=== PATIENT | male | born 1950 | race Caucasian/White ===

== ENCOUNTER → 2018-02-17 | Outpatient (CLI) | payer MEDICARE ==
[~2018-02-17] MED LIST: BARIUM SUSPENSION 2.1% (VANILLA SILQ) 450 ML PO ONE; CATHETER FLUSH 10 ML SYR IV PRN; IOHEXOL 350 MG/ML 100 ML (OMNIPAQUE 350) VIAL IV ONE; NS 250 ML (IVPB) BAG IV ONE
[2018-02-17 11:09] LABS: BUN/CREATININE RATIO 12; CREATININE SERUM 0.84 MG/DL (0.60-1.30); GFR ESTIMATED > 60
--- NOTE | 2018-02-17 12:35 | Diagnostic Imaging Report ---
PROCEDURE: CT abdomen and pelvis with contrast. TECHNIQUE: Multiple contiguous axial images were obtained through the abdomen and pelvis after administration of intravenous contrast. INDICATION: Prostate carcinoma. COMPARISON: No prior studies are available for comparison. FINDINGS: The lung bases are clear. No discrete liver mass is identified. Mild generalized low density throughout the liver is seen, suggestive of hepatic steatosis. The gallbladder is unremarkable. The pancreas and spleen are unremarkable. No adrenal mass is detected. The kidneys are unremarkable. Aorta is nonaneurysmal. No central retroperitoneal or mesenteric lymphadenopathy is seen. The small and large bowel loops are normal in caliber. There is no ascites. No inguinal or iliac lymphadenopathy is seen. The bladder is unremarkable. Prostate is grossly unremarkable. No definite osteoblastic lesions are seen. IMPRESSION: Essentially unremarkable CT of the abdomen and pelvis apart from mild hepatic steatosis. There is no evidence of abdominal or pelvic lymphadenopathy or metastatic disease. Dictated by: Dictated on workstation # [id number]
--- NOTE | 2018-02-17 16:03 | Diagnostic Imaging Report ---
INDICATION: Prostate carcinoma. TECHNIQUE: The patient was administered 27.3 mCi of technetium 99m MDP intravenously and whole-body imaging was performed after a 3 hour delay. No prior bone scans are available for comparison. There is normal uptake of activity by the axial and appendicular skeleton. There is uptake by both kidneys with excretion to the urinary bladder. No abnormal foci of tracer accumulation is seen to suggest osseous metastatic disease or occult fracture. Probable degenerative changes of the right ankle are noted. IMPRESSION: No scintigraphic evidence of osseous metastatic disease. Dictated by: Dictated on workstation # [id number]
== END ==
LOC: RAD 10:39
PROVIDERS: ATTEND Urology
DX: C61 Malignant neoplasm of prostate (principal); K76.0 Fatty (change of) liver, not elsewhere classified
CPT/HCPCS: 36415; 74177; 78306; 82565; 84520

== ENCOUNTER 2018-03-28 14:56 | Outpatient (RCR) | payer MEDICARE | END 2018-04-18 | disposition home or self-care (01) | LOC: ONC 14:56 | PROVIDERS: ATTEND Radiology Radiation Oncology | DX: C61 Malignant neoplasm of prostate (principal) | CPT/HCPCS: 99204 ==

== ENCOUNTER 2018-07-07 09:55 | Outpatient (CLI) | payer BC, MEDICARE ==
[~2018-07-07] VITALS: Ht 165.1 cm; Wt 68.6 kg
[2018-07-07] MEDS ORDERED: LATA7.5D OU (10:15)
[2018-07-07] MEDS ORDERED: METF-397 PO (10:15)
[2018-07-07] MEDS ORDERED: DILT180C54 PO (10:15)
[2018-07-07] MEDS ORDERED: LISI40TA PO (10:15)
[2018-07-07] MEDS ORDERED: FLAX100031 PO (10:15)
[2018-07-07] MEDS ORDERED: PRAV20TA3 PO (10:15)
[2018-07-07] MEDS ORDERED: TAMS0.4C2 PO (10:15)
[2018-07-07] MEDS ORDERED: ASPI-586 PO (10:15)
[2018-07-07 10:18] VITALS: BP 165/95
== END 2018-07-07 11:09 | disposition home or self-care (01) ==
LOC: PREOP 09:55
PROVIDERS: ATTEND Urology
DX: Z01.810 Encounter for preprocedural cardiovascular examination (principal); Z11.2 Encounter for screening for other bacterial diseases; C61 Malignant neoplasm of prostate
CPT/HCPCS: 87081; 93005

== ENCOUNTER 2018-07-13 05:46 | Inpatient (IN) | payer BC, MEDICARE ==
[~2018-07-13] VITALS: Ht 165.1 cm; Wt 68.6 kg
[~2018-07-13 05:46] MED LIST changes: +ASPI-586 PO; -BARIUM SUSPENSION 2.1% (VANILLA SILQ) 450 ML PO ONE; -CATHETER FLUSH 10 ML SYR IV PRN; +DILT180C54 PO; +FLAX100031 PO; -IOHEXOL 350 MG/ML 100 ML (OMNIPAQUE 350) VIAL IV ONE; +LATA7.5D OU; +LISI40TA PO; +METF-397 PO; -NS 250 ML (IVPB) BAG IV ONE; +PRAV20TA3 PO; +TAMS0.4C2 PO
[2018-07-13] MEDS ORDERED: BUPIVACAINE 0.25% 30 ML (SENSORCAINE) VIAL ONE (06:26)
[2018-07-13] MEDS ORDERED: ceFAZolin 1,000 MG/10 ML (ANCEF) VIAL ONE (06:27)
[2018-07-13] MEDS ORDERED: NS (IVPB) 50 ML ONE (06:27)
[2018-07-13] MEDS ORDERED: MIDAZOLAM 2 MG/2 ML (VERSED) VIAL ONE (06:44)
[2018-07-13] MEDS ORDERED: fentaNYL INJECTION 100 MCG/2 ML AMP ONE (06:44)
[2018-07-13] MEDS ORDERED: ROCURONIUM 10 MG/ML 5 ML SYRINGE IV ONE ×2 (06:44→07:57)
[2018-07-13] MEDS ORDERED: SEVOFLURANE (ULTANE) 15 ML INHAL SOLN ONE ×13 (06:44→10:21)
[2018-07-13] MEDS ORDERED: ONDANSETRON 4 MG/2 ML (SDV) Z0FRAN ONE (06:44)
[2018-07-13] MEDS ORDERED: LIDOCAINE PF 2% 5 ML (XYLOCAINE) VIAL ONE (06:44)
[2018-07-13] MEDS ORDERED: proPOfol 200 MG/20 ML (DIPRIVAN) VIAL IV ONE (06:44)
[2018-07-13] MEDS: LACTATED RINGERS 1,000 ML IV PRN ×2 (06:55→07:55)
[2018-07-13] MEDS ORDERED: ceFAZolin INJECTION 1,000 MG in NS (IVPB) 50 ML IV ONE (07:00)
[2018-07-13] MEDS ORDERED: DOCUSATE SODIUM 100 MG (COLACE) CAP PO PRN (07:30)
[2018-07-13] MEDS ORDERED: SIMETHICONE 80 MG (MYLICON) CHEW PO PRN (07:30)
[2018-07-13] MEDS ORDERED: DILTIAZEM 180 MG (CARDIZEM CD) CAP PO ONE (07:30)
[2018-07-13] MEDS ORDERED: KETOROLAC 30 MG/ML VIAL IV PRN (07:30)
[2018-07-13] MEDS ORDERED: ZOLPIDEM 5 MG (AMBIEN) TAB PO PRN (07:30)
[2018-07-13] MEDS ORDERED: HYDROcodone/APAP 7.5 MG/325 MG (LORTAB, LORCET PLUS) TABLET PO PRN (07:30)
[2018-07-13] MEDS ORDERED: ANTACID SUSP 30 ML UDC (MYLANTA) PO PRN (07:30)
[2018-07-13] MEDS ORDERED: HYOSCYAMINE 0.125 MG (LEVSIN) TAB PO PRN (07:30)
[2018-07-13] MEDS ORDERED: ONDANSETRON 4 MG/2 ML (SDV) Z0FRAN IV PRN (07:30)
[2018-07-13] MEDS ORDERED: GLYCOPYRROLATE 0.2 MG/ML (ROBINUL) 2 ML VIAL ONE (09:43)
[2018-07-13] MEDS ORDERED: NEOSTIGMINE 1 MG/ML 5 ML SYRINGE ONE (09:43)
--- NOTE | 2018-07-13 10:40 | Progress Note-Post Operative ---
Post-Operative Progess Note Surgeon (s)/Pan Dumper (s) Surgeon SEAMUS NGUYEN MD Pan Dumper: None Pre-Operative Diagnosis Prostate cancer Post-Operative Diagnosis Prostate cancer, umbilical hernia Procedure & Operative Findings Date of Procedure 07/13/18 Procedure Performed/Findings Robotic assisted laparoscopic prostatectomy, bilateral pelvic lymph node dissection, bilateral nerve sparing, umbilical hernia repair. Findings: no evidence of gross extraprostatic extension; fibrotic reaction around the prostate with a moderate median lobe. Umbilical hernia present, ~1cm in diameter. Anesthesia Type General Estimated Blood Loss Estimated blood loss (mL): 100 Specimens/Packing Specimens Removed Prostate, right and left pelvic lymph nodes, anterior bladder neck margin, and umbilical hernia sac SEAMUS NGUYEN MD Jul 13, 2018 10:40
[2018-07-13] MEDS ORDERED: PROMETHAZINE INJ 25 MG/ML (PHENERGAN) AMP IVP ONE (10:45)
[2018-07-13] MEDS ORDERED: MEPERIDINE (DEMEROL) INJ 50 MG/ML IVP ONE (10:45)
[2018-07-13] MEDS ORDERED: HYDROmorphone 2 MG/ML VIAL (DILAUDID) IV ONE (10:45)
[2018-07-13] MEDS ORDERED: morphine INJ 10 MG/ML 1ML (SYR OR VIAL) IVP ONE (10:45)
[2018-07-13] MEDS ORDERED: morphine INJ 10 MG/ML 1ML (SYR OR VIAL) ONE (10:49)
[2018-07-13] MEDS ORDERED: KETOROLAC 30 MG/ML VIAL ONE (11:01)
[2018-07-13] MEDS: ONDANSETRON 4 MG/2 ML (SDV) Z0FRAN IVP PRN ×2 (11:28→11:35)
[2018-07-13 11:40] VITALS: BP 125/65
[2018-07-13] MEDS ORDERED: LACTATED RINGERS 1,000 ML IV ONE (11:48)
[2018-07-13] MEDS: LACTATED RINGERS 1,000 ML IV SCH ×3 (11:53→20:12)
[2018-07-13] MEDS: inSUlin ASPART (NovoLOG) 1 UNIT/0.01 ML (CHARGE PER UNIT) SC SCH ×8 (11:55→22:02)
[2018-07-13] MEDS: OXYBUTYNIN (DITROPAN) 5 MG TAB PO SCH ×2 (12:41→22:03)
[2018-07-13] MEDS: lisINopril 40 MG (PRINIVIL) TABLET PO SCH (12:42)
[2018-07-13] MEDS ORDERED: FLU QUADRIvalent (5+ YOA) 2018-2019 (AFLURIA) 0.5 ML IM ONE (12:45)
[2018-07-13] MEDS ORDERED: DILTIAZEM 180 MG (CARDIZEM CD) CAP PO NR (13:45)
[2018-07-13] MEDS: ceFAZolin INJECTION 1,000 MG in NS (IVPB) 50 ML IV SCH ×2 (13:52→22:43)
--- NOTE | 2018-07-13 14:03 | OPERATIVE REPORT ---
DATE OF SERVICE: 07/13/2018 ATTENDING SURGEON: Rusty Crane MD. CONSUMER INSIGHT ANALYST SURGEON: None. PREOPERATIVE DIAGNOSIS: Intermediate risk adenocarcinoma of the prostate. POSTOPERATIVE DIAGNOSIS: Intermediate risk adenocarcinoma of the prostate. PROCEDURES: 1. Robotic-assisted laparoscopic radical prostatectomy. 2. Bilateral pelvic lymph node dissection. 3. Bilateral nerve sparing. 4. Umbilical hernia repair. COMPLICATIONS: None. DRAINS: A 20-Swiss Singh catheter with a drainage of 15 mL in the balloon. ESTIMATED BLOOD LOSS: 300 mL. ANESTHESIA: General endotracheal anesthesia. SPECIMENS REMOVED: 1. Prostate and seminal vesicles. 2. Right and left pelvic lymph nodes. 3. Umbilical hernia sac. INDICATIONS FOR PROCEDURE: The patient is a very pleasant 68-year-old gentleman, who has a history of intermediate risk of adenocarcinoma of the prostate. I have discussed the various treatment options and the patient has elected to proceed with robotic-assisted laparoscopic radical prostatectomy. DESCRIPTION OF PROCEDURE: After reviewing the risks, benefits and alternatives of the procedure, the patient was taken to the operative suite and placed under general endotracheal anesthesia. He was moved to dorsal lithotomy position. His lower abdomen was clipped, prepped and draped in the usual fashion. Preoperative timeout was performed. Appropriate perioperative antibiotics were instilled. A 10 mm incision was made approximately 18 cm cephalad to the pubic symphysis. Through this, a Veress needle was inserted and a saline drop test was performed. Abdomen was insufflated to 15 mmHg. A step device was then utilized and a 10 mm port was placed through which a robotic camera was inserted. Intra-abdominal contents were inspected. No intra-abdominal injuries were identified. Three robotic ports were then placed, two in the midaxillary and midclavicular lines at the level of the umbilicus and one on the right side at the midclavicular line at the level of the umbilicus as well. These were placed under direct visualization. A 5 mm port was placed in the right upper quadrant along with a 12 mm port in the right lower quadrant, both using a step device. The patient was then moved in the Trendelenburg position. The robot was docked. We began by performing the bilateral pelvic lymph node dissection. The peritoneotomy was made overlying the external iliac arteries from the level of the ureter down to the Av's ligament. These were widened in the space medial to the vessels and lateral to the superior vesicle artery was created. In fact tissue overlying the external iliac vein, obturator nerve and internal area of the iliac vein was elevated and resected. Bipolar electrocautery was used to control lymphatics entering into the pelvis. These were passed off the surgical field as right and left pelvic lymph nodes. The peritoneotomies were continued up to the level of the umbilicus, which was divided using electrocautery. The bladder was then intraperitonealized and the anterior surface of the prostate was visualized. Prostate was defatted and the endopelvic fascia was opened. The puboprostatic ligaments were divided and a 0 Vicryl suture was then used to place a back bleeder suture together the leaflets of the endopelvic fascia at the midlevel of the prostate. An additional 0 Vicryl suture was then used in order to ligate the dorsal venous complex in a [id number] fashion. The bladder neck was then developed by sweeping free the fibers away from the prostate. Entering into the bladder neck, there was a median lobe identified and this was circumferentially dissected and resected. A frozen section was taken from the anterior bladder neck given the inflammatory reaction visible. This was confirmed that this was not adenocarcinoma the prostate. This did return as negative for malignancy. We then completed the posterior bladder neck dissection freeing the bladder from the prostate entirely. The vesicoprostatic membrane was divided and the seminal vesicles and vas deferens were circumferentially dissected and elevated out of the pelvis along with the prostate. The vas deferens were transected at this point. A high anterior release of the neurovascular bundles was then performed bilaterally. With this in size, we were able to sweep free the neurovascular tissue. The Denonvilliers fascia was then divided posteriorly and the apex of the prostate was dissected free from the rectum. With these two maneuvers completed, the vascular pedicles were able to be freely identified, which were controlled using bipolar electrocautery and divided sharply. The neurovascular bundles were then swept free down to the level of the apex of the prostate. A circumferential urethral dissection was then performed by dividing the dorsal venous complex and dissecting the urethra sharply. The dorsal venous complex was oversewn due to some bleeding using 0 Vicryl suture. Once the urethra was transected, the specimen was placed in a specimen bag. Hemostasis was achieved. A standard urethrovesical anastomosis was then performed using a 2-0 Monocryl suture tied together in a running fashion. This was run from posterior to anterior and tied. A new 20-Swiss Singh catheter was placed and this was leak tested using 150 mL of sterile saline. No leak was identified. Due to this, no drain was placed. The specimen was then repositioned through the midline port and the robot was undocked. Abdomen was desufflated and the patient was moved out of the Trendelenburg position. Midline incision was then extended down to the level of the umbilicus. An umbilical hernia was present approximately 1 cm in diameter. This was incorporated into the fascial opening. The sac of the hernia was resected and then the fascial edges were reapproximated using a 0 Vicryl suture in a akcwde-ar-[id number] fashion. Once this was completed, the umbilicus was then reapproximated down to the fascia using a 4-0 Vicryl suture. The skin was then infiltrated with local anesthesia and was closed using a 4-0 Monocryl in a subcuticular fashion. Dermabond was applied. The patient was then extubated and taken to the PACU in stable condition. Job ID: [id number] DocumentID: [id number] Dictated Date: 07/13/2018 10:22:11 Car Shunter Date: 07/13/2018 14:02:48 Dictated By: Rusty Crane MD
[2018-07-13 16:10] VITALS: BP 145/78
[2018-07-13 20:00] VITALS: BP 136/72
[2018-07-13] MEDS ORDERED: LATANOPROST 0.005% (XALATAN) OPHTH SOLN 2.5 ML OU SCH (21:00)
[2018-07-14] VITALS: BP 144/68
[2018-07-14] MEDS ORDERED: IBUPROFEN 600 MG (MOTRIN) TAB PO PRN
[2018-07-14] MEDS: LACTATED RINGERS 1,000 ML IV SCH (04:48)
[2018-07-14 04:51] VITALS: BP 161/79
[2018-07-14] MEDS: inSUlin ASPART (NovoLOG) 1 UNIT/0.01 ML (CHARGE PER UNIT) SC SCH (05:36)
[2018-07-14] MEDS: ceFAZolin INJECTION 1,000 MG in NS (IVPB) 50 ML IV SCH (06:03)
--- NOTE | 2018-07-14 06:37 | Progress Note-Urology ---
Progress Note-Urology Progress Notes/Assess & Plan Progress/Assessment & Plan DOING VERY WELL. TOLERATED PO WELL. URINE CLEAR. ABDOMEN SOFT. HOME WITH INSTRUCTIONS Final Diagnosis CA PROSTATE JOSE GUADALUPE SHAVER MD Jul 14, 2018 6:37 am
--- NOTE | 2018-07-14 06:41 | Discharge Inst-Urology ---
Discharge Inst-Urology Discharge Medications New, Converted, or Re-newed RX: RX on Chart Patient Instructions/Follow Up Plan Discharge with delgado and leg bag day time and large bag night time with instructions patient to come to office Tuesday 07/24 to DC Delgado and 2 weeks later to see me, rest till then Please make appointment to been seen in office in 2 weeks. Off ASA and Tamsulosin Keep bowels soft and moving Showers no bath Increase oral fluids for 48 hours and then as needed. Diet as tolerated. If questions or concerns contact your physician Or seek help at emergency department. JOSE GUADALUPE SHAVER MD Jul 14, 2018 6:41 am
[2018-07-14 08:00] VITALS: BP 179/88
[2018-07-14] MEDS ORDERED: HYDR-3870 PO ×2 (08:09)
[2018-07-14] MEDS ORDERED: CIPR-225 PO ×2 (08:09)
[2018-07-14] MEDS ORDERED: FLU QUADRIvalent (5+ YOA) 2018-2019 (AFLURIA) 0.5 ML IM ONE (08:22)
[2018-07-14] MEDS: lisINopril 40 MG (PRINIVIL) TABLET PO SCH (08:43)
[2018-07-14] MEDS: OXYBUTYNIN (DITROPAN) 5 MG TAB PO SCH (08:43)
[2018-07-14 09:13] LABS: MEAN PLATELET VOLUME 9.6 FL (7.4-10.4); RED BLOOD COUNT 4.72 10^6/uL (4.35-5.85); RED CELL DISTRIBUTION WIDTH 14.2 % (10.0-14.5); WHITE BLOOD COUNT 8.9 10^3/uL (4.3-11.0)
[2018-07-14 09:28] LABS: BUN/CREATININE RATIO 9; CALCIUM 8.8 MG/DL (8.5-10.1); CARBON DIOXIDE 23 MMOL/L (21-32); CHLORIDE 108 MMOL/L (98-107); CREATININE SERUM 0.86 MG/DL (0.60-1.30); GFR ESTIMATED > 60; GLUCOSE 247 MG/DL (70-105); POTASSIUM 4.1 MMOL/L (3.6-5.0); SODIUM 140 MMOL/L (135-145)
[2018-07-14 09:50] VITALS: BP 179/88
--- NOTE | 2018-07-14 13:39 | Anesthesia-General Post-Op ---
General Patient Condition Mental Status/LOC: Same as Preop Cardiovascular: Satisfactory Nausea/Vomiting: Absent Respiratory: Satisfactory Pain: Controlled Complications: Absent Post Op Complications Complications None Follow Up Care/Instructions Patient Instructions None needed. Anesthesia/Patient Condition Patient Condition Patient was seen post-op this morning and he was doing well, no complaints, stable vital signs, no apparent adverse anesthesia problems. CINDY ROBERTS DO Jul 14, 2018 13:39
== END 2018-07-14 09:50 | disposition home or self-care (01) | DRG 708 ==
LOC: 4TH 05:46 → SURG 05:47 → 4TH 11:44
PROVIDERS: ADMIT Urology; ATTEND Urology
PROC: 07TC4ZZ Resection of Pelvis Lymphatic, Percutaneous Endoscopic Approach (ICD-10-PCS; 2018-07-13)
PROC: 0TBC4ZX Excision of Bladder Neck, Percutaneous Endoscopic Approach, Diagnostic (ICD-10-PCS; 2018-07-13)
PROC: 0VT34ZZ Resection of Bilateral Seminal Vesicles, Percutaneous Endoscopic Approach (ICD-10-PCS; 2018-07-13)
PROC: 0VBQ4ZZ Excision of Bilateral Vas Deferens, Percutaneous Endoscopic Approach (ICD-10-PCS; 2018-07-13)
PROC: 0WQF0ZZ Repair Abdominal Wall, Open Approach (ICD-10-PCS; 2018-07-13)
PROC: 8E0W4CZ Robotic Assisted Procedure of Trunk Region, Percutaneous Endoscopic Approach (ICD-10-PCS; 2018-07-13)
PROC: 0VT04ZZ Resection of Prostate, Percutaneous Endoscopic Approach (ICD-10-PCS; principal; 2018-07-13 07:13)
DX: C61 Malignant neoplasm of prostate (principal)
CPT/HCPCS: 36415; 80048; 82962; 85027; 86850; 86900; 86901; 88302; 88305; 88307; 88331; 90471; 90686; 94664

== ENCOUNTER 2018-07-15 18:28 | Emergency (ER) | payer BC, MEDICARE ==
[~2018-07-15] VITALS: Ht 165.1 cm; Wt 69.9 kg
[~2018-07-15 18:28] MED LIST changes: +CIPR-225 PO; +HYDR-3870 PO
[2018-07-15] MEDS ORDERED: ONDANSETRON 4 MG/2 ML (SDV) Z0FRAN IVP ONE (19:00)
[2018-07-15] MEDS ORDERED: PANTOPRAZOLE 40 MG (PROTONIX) VIAL IV ONE (19:00)
[2018-07-15 19:17] LABS: BASOPHILS % (AUTO) 0 % (0-10); EOSINOPHILS % (AUTO) 0 % (0-10); HEMATOCRIT 51 % (40-54); HEMOGLOBIN 17.2 G/DL (13.3-17.7); LYMPHOCYTES % (AUTO) 13 % (12-44); MEAN CORPUSCULAR HEMOGLOBIN 29 PG (25-34); MEAN CORPUSCULAR HGB CONC 34 G/DL (32-36); MEAN CORPUSCULAR VOLUME 86 FL (80-99); MEAN PLATELET VOLUME 10.3 FL (7.4-10.4); MONOCYTES # (AUTO) 1.7 X 10^3 (0.0-1.0); MONOCYTES % (AUTO) 11 % (0-12); NEUTROPHILS # (AUTO) 11.1 X 10^3 (1.8-7.8); NEUTROPHILS % (AUTO) 75 % (42-75); PLATELET COUNT 236 10^3/uL (130-400); RED BLOOD COUNT 5.87 10^6/uL (4.35-5.85); RED CELL DISTRIBUTION WIDTH 13.5 % (10.0-14.5); WHITE BLOOD COUNT 14.8 10^3/uL (4.3-11.0)
[2018-07-15 19:38] LABS: INR 0.9 (0.8-1.4); PROTHROMBIN TIME PATIENT 12.4 SEC (12.2-14.7)
--- NOTE | 2018-07-15 19:40 | Diagnostic Imaging Report ---
INDICATION: Cough. Hemoptysis. EXAMINATION: Portable chest. FINDINGS: There is some infiltrate or atelectasis medially in the lung bases, bilaterally. The upper lungs are clear without evidence of pulmonary edema. Heart is not enlarged. No pneumothorax or pleural effusion. IMPRESSION: Portable chest showing some linear density along the medial basilar portions, bilaterally. This may represent atelectasis and/or infiltrate. Dictated by: Dictated on workstation # [id number]
[2018-07-15 19:51] LABS: BILIRUBIN,URINE NEGATIVE (NEGATIVE); CLARITY,URINE BLOODY; COLOR,URINE RED; GLUCOSE, URINE (UA) 2+ (NEGATIVE); KETONES,URINE 4+ (NEGATIVE); LEUKOCYTE ESTERASE ,URINE 1+ (NEGATIVE); NITRITE,URINE NEGATIVE (NEGATIVE); PH,URINE 6.5 (5-9); PROTEIN,URINE 4+ (NEGATIVE); UROBILINOGEN,URINE NORMAL (NORMAL)
[2018-07-15 19:56] LABS: ALANINE AMINOTRANSFERASE 14 U/L (0-55); ALBUMIN 3.9 GM/DL (3.2-4.5); ALKALINE PHOSPHATASE 78 U/L (40-136); AMYLASE 61 U/L (25-125); BILIRUBIN,TOTAL 0.9 MG/DL (0.1-1.0); BUN/CREATININE RATIO 17; CARBON DIOXIDE 23 MMOL/L (21-32); CHLORIDE 99 MMOL/L (98-107); CREATININE SERUM 1.01 MG/DL (0.60-1.30); GFR ESTIMATED > 60; GLUCOSE 207 MG/DL (70-105); LIPASE 10 U/L (8-78); MAGNESIUM 2.1 MG/DL (1.8-2.4); POTASSIUM 4.2 MMOL/L (3.6-5.0); SODIUM 137 MMOL/L (135-145); TOTAL PROTEIN 7.2 GM/DL (6.4-8.2)
[2018-07-15] MEDS ORDERED: IOHEXOL 350 MG/ML 100 ML (OMNIPAQUE 350) VIAL IV ONE (20:15)
[2018-07-15] MEDS ORDERED: CATHETER FLUSH 10 ML SYR IV PRN (20:15)
[2018-07-15] MEDS ORDERED: hydrALAZINE (APESOLINE) 20 MG/ML VIAL IV ONE (20:15)
[2018-07-15] MEDS ORDERED: NS 250 ML (IVPB) BAG IV ONE (20:15)
--- NOTE | 2018-07-15 20:23 | ED General ---
General Chief Complaint: Abdominal/GI Problems Stated Complaint: PUKING UP BLOOD Nursing Triage Note: PT TO ROOM 2 PER W/C PT CO OF VOMITING BLOOD X2 TODAY. HAVING DIFFICULTY SWALLOWING ABD, DISTENDED, ON 07/13 HAD RADICAL PROSTATECTOMY AND UMBILICAL HERNIA REPAIR. PT IS PROFUSLEY SWEATING, AND TACHY. PT STATES HAS NOT HAD BM SINCE SURG AND HAS PASSED GAS ONLY ONCE. PT HAS LEG BAG W BRIGHT RED BLOOD NOTED IN BAG. PT ALSO HAS ABD WOUNDS FROM RECENT SURG Nursing Sepsis Screen: No Definite Risk Source of Information: Patient Exam Limitations: No Limitations History of Present Illness Date Seen by Provider: Jul 15, 2018 Time Seen by Provider: 18:50 Initial Comments PT ARRIVES VIA POV FROM [facility]--REQUIRES WHEELCHAIR AND ASSISTANCE OUT OF VEHICLE PT STATES HE HAD A ROBOTIC LAPAROSCOPIC RADICAL PROSTATECTOMY AND UMBILICAL HERNIA REPAIR BY DR. NGUYEN, UROLOGIST FROM , DONE HERE ON 07/13/18. WAS DISMISSED YESTERDAY AROUND 11:00 AM PT STATES HE HAS NOT HAD A BM SINCE BEFORE SURGERY, AND IS NOT PASSING ANY GAS PT STATES HE HAS NOT BEEN ABLE TO EAT OR DRINK MUCH AT ALL SINCE SURGERY AND TODAY, HE STATES "NOTHING WILL GO DOWN" TONIGHT HE VOMITED BLOOD X 2 WHEN HE TRIED TO DRINK CLEAR LIQUIDS JUST PRIOR TO ARRIVAL, SO CAME TO ER STATES HE FEELS VERY BLOATED HAS BEEN SWEATING CONTINUOUSLY ALL DAY TODAY, BUT HAS NOT FELT LIKE HE HAD FEVER STATES IT FEELS LIKE EVERYTHING IS GETTING STUCK IN UPPER CHEST AREA AND HAS PRESSURE IN THAT AREA STATES HE IS ONLY HAVING SOME MILD PAIN Allergies and Home Medications Allergies Coded Allergies: No Known Allergies (Unverified Allergy, Unknown, 07/07/18) Home Medications Ciprofloxacin HCl 500 Mg Tablet, 500 MG PO BID Prescribed by: REY VALIENTE on 07/14/18 0809 Diltiazem HCl 180 Mg Cap.er.24h, 360 MG PO DAILY, (Reported) Flaxseed Oil 1,000 Mg Capsule, 1,000 MG PO DAILY, (Reported) Hydrocodone/Acetaminophen 1 Each Tablet, 1-2 EACH PO Q6H PRN for PAIN-MODERATE Prescribed by: REY VALIENTE on 07/14/18 0809 Latanoprost/Pf 7.5 Ml Drops, 1 DROP OU HS, (Reported) Lisinopril 40 Mg Tablet, 40 MG PO DAILY, (Reported) Metformin HCl 500 Mg Tablet, 1,000 MG PO BID, (Reported) Pravastatin Sodium 20 Mg Tablet, 20 MG PO HS, (Reported) Past Uzifuff-Xxgbib-Bilkgm Hx Patient Social History Alcohol Use: Denies Use Recreational Drug Use: No Smoking Status: Former Smoker Former Smoker, Quit: Jul 07, 2006 Recent Foreign Travel: No Contact w/Someone Who Travel: No Recent Infectious Disease Expo: No Recent Hopitalizations: Yes (SURGERY) Immunizations Up To Date Date of Pneumonia Vaccine: Jul 04, 2017 Date of Influenza Vaccine: Jul 14, 2018 Seasonal Allergies Seasonal Allergies: No Past Medical History Surgeries: No Respiratory: No Cardiac: Yes Neurological: No Sexually Transmitted Disease: No HIV/AIDS: No Genitourinary: Yes (PROSTATE CANCER) Prostate Problems Gastrointestinal: No Musculoskeletal: Yes (FINGERS) Arthritis Endocrine: Yes HEENT: Yes (DENTURES, GLASSES) Loss of Vision: Bilateral Cancer: Yes Prostate Psychosocial: No Integumentary: No Blood Disorders: No Adverse Reaction/Blood Tranf: No (N/A) Family Medical History Cardiovascular disease Diabetes mellitus Hypertension Physical Exam Vital Signs Vital Signs - First Documented 07/15/18 07/15/18 18:46 19:57 Temp 97.7 Pulse 126 Resp 24 B/P (MAP) 161/119 (133) Pulse Ox 94 O2 Delivery Room Air O2 Flow Rate 2.00 Capillary Refill : Less Than 3 Seconds Height, Weight, BMI Height: 5'5.00" Weight: 154lbs. 5.0oz. [id number]; 25.2 BMI Method:Stated Focused Exam Lactate Level 07/15/18 19:00: Lactic Acid Level 2.79*H 07/15/18 21:30: Lactic Acid Level 3.16*H Lactic Acid Level Laboratory Tests Test 07/15/18 21:30 Lactic Acid Level 3.16 MMOL/L (0.50-2.00) *H Progress/Results/Core Measures Suspected Sepsis Recent Fever Within 48 Hours: No Infection Criteria Present: None New/Unexplained Altered Menta: No Sepsis Screen: No Definite Risk SIRS Temperature:97.7 Pulse: 126 Respiratory Rate: 24 Laboratory Tests 07/15/18 19:00: White Blood Count 14.8H Blood Pressure 161 /119 Mean: 133 07/15/18 19:00: Lactic Acid Level 2.79*H 07/15/18 21:30: Lactic Acid Level 3.16*H Laboratory Tests 07/15/18 19:00: Creatinine 1.01, INR Comment 0.9, Platelet Count 236, Total Bilirubin 0.9 Results/Orders Lab Results Laboratory Tests Test 07/15/18 18:58 07/15/18 19:00 07/15/18 21:30 Range/Units Urine Color RED H Urine Clarity BLOODY H Urine pH 6.5 5-9 Urine Specific [place] 1.025 H 1.016-1.022 Urine Protein 4+ NEGATIVE Urine Glucose (UA) 2+ H NEGATIVE Urine Ketones 4+ H NEGATIVE Urine Nitrite NEGATIVE NEGATIVE Urine Bilirubin NEGATIVE NEGATIVE Urine Urobilinogen NORMAL NORMAL MG/DL Urine Leukocyte Esterase 1+ H NEGATIVE Urine RBC (Auto) 5+ H NEGATIVE Urine RBC TNTC H /HPF Urine WBC NONE /HPF Urine Crystals NONE /LPF Urine Bacteria NEGATIVE /HPF Urine Casts NONE /LPF Urine Mucus NEGATIVE /LPF Urine Culture Indicated NO White Blood Count 14.8 H 4.3-11.0 10^3/uL Red Blood Count 5.87 H 4.35-5.85 10^6/uL Hemoglobin 17.2 # 13.3-17.7 G/DL Hematocrit 51 40-54 % Mean Corpuscular Volume 86 80-99 FL Mean Corpuscular Hemoglobin 29 25-34 PG Mean Corpuscular Hemoglobin Concent 34 32-36 G/DL Red Cell Distribution Width 13.5 10.0-14.5 % Platelet Count 236 130-400 10^3/uL Mean Platelet Volume 10.3 7.4-10.4 FL Neutrophils (%) (Auto) 75 42-75 % Lymphocytes (%) (Auto) 13 12-44 % Monocytes (%) (Auto) 11 0-12 % Eosinophils (%) (Auto) 0 0-10 % Basophils (%) (Auto) 0 0-10 % Neutrophils # (Auto) 11.1 H 1.8-7.8 X 10^3 Lymphocytes # (Auto) 2.0 1.0-4.0 X 10^3 Monocytes # (Auto) 1.7 H 0.0-1.0 X 10^3 Eosinophils # (Auto) 0.0 0.0-0.3 10^3/uL Basophils # (Auto) 0.0 0.0-0.1 10^3/uL Neutrophils % (Manual) 74 % Lymphocytes % (Manual) 16 % Monocytes % (Manual) 9 % Band Neutrophils 1 % Blood Morphology Comment NORMAL Prothrombin Time 12.4 12.2-14.7 SEC INR Comment 0.9 0.8-1.4 Activated Partial Thromboplast Time 26 24-35 SEC Sodium Level 137 135-145 MMOL/L Potassium Level 4.2 3.6-5.0 MMOL/L Chloride Level 99 98-107 MMOL/L Carbon Dioxide Level 23 21-32 MMOL/L Anion Gap 15 H 5-14 MMOL/L Blood Urea Nitrogen 17 7-18 MG/DL Creatinine 1.01 0.60-1.30 MG/DL Estimat Glomerular Filtration Rate > 60 BUN/Creatinine Ratio 17 Glucose Level 207 H 70-105 MG/DL Lactic Acid Level 2.79 *H 3.16 *H 0.50-2.00 MMOL/L Calcium Level 10.0 8.5-10.1 MG/DL Corrected Calcium 10.1 8.5-10.1 MG/DL Magnesium Level 2.1 1.8-2.4 MG/DL Total Bilirubin 0.9 0.1-1.0 MG/DL Aspartate Amino Transf (AST/SGOT) 15 5-34 U/L Alanine Aminotransferase (ALT/SGPT) 14 0-55 U/L Alkaline Phosphatase 78 40-136 U/L Troponin I < 0.30 <0.30 NG/ML B-Type Natriuretic Peptide 76.9 <100.0 PG/ML Total Protein 7.2 6.4-8.2 GM/DL Albumin 3.9 3.2-4.5 GM/DL Amylase Level 61 25-125 U/L Lipase 10 8-78 U/L My Orders Orders - LARRY POOL DO Saline Lock/Iv-Start (07/15/18 18:59) Ekg Tracing (07/15/18 18:59) O2 (07/15/18 18:59) Monitor-Rhythm Ecg Trace Only (07/15/18 18:59) Amylase (07/15/18 18:59) BNP (07/15/18 18:59) Cbc With Automated Diff (07/15/18 18:59) Comprehensive Metabolic Panel (07/15/18 18:59) Lactic Acid Analyzer (07/15/18 18:59) Lipase (07/15/18 18:59) Magnesium (07/15/18 18:59) Protime With Inr (07/15/18 18:59) Partial Thromboplastin Time (07/15/18 18:59) Troponin I (07/15/18 18:59) Ua Culture If Indicated (07/15/18 18:59) Blood Culture (07/15/18 18:59) Chest 1 View, Ap/Pa Only (07/15/18 18:59) Ondansetron Injection (Zofran Injectio (07/15/18 19:00) Saline Lock/Iv-Start (07/15/18 18:59) Pantoprazole Injection (Protonix Injecti (07/15/18 19:00) Manual Differential (07/15/18 19:00) Ct Melinda Chest/Noang Abd-Pelv W (07/15/18 20:01) Iohexol Injection (Omnipaque 350 Mg/Ml 1 (07/15/18 20:15) Ns (Ivpb) (Sodium Chloride 0.9%) (07/15/18 20:15) Pharmacy Communication (Pharmacy Communi (07/15/18 20:04) Sodium Chloride Flush (Catheter Flush Sy (07/15/18 20:15) Hydralazine Injection (Apresoline Inject (07/15/18 20:15) Fentanyl Injection (Sublimaze Injection (07/15/18 21:21) Ng Tube Insert & Assessment (07/15/18 22:12) Saline Lock/Iv-Start (07/15/18 22:47) Ns Iv 1000 Ml (Sodium Chloride 0.9%) (07/15/18 22:47) Ceftriaxone For Iv Use (Rocephin For I (07/15/18 23:00) Medications Given in ED Current Medications Medications Dose Ordered Sig/Wendy Route Start Time Stop Time Status Last Admin Dose Admin Hydralazine HCl 10 mg ONCE ONCE IV 07/15/18 20:15 07/15/18 20:16 DC 07/15/18 20:48 10 MG Iohexol 100 ml ONCE ONCE IV 07/15/18 20:15 07/15/18 20:16 DC 07/15/18 20:26 125 ML Ondansetron HCl 8 mg ONCE ONCE IVP 07/15/18 19:00 07/15/18 19:02 DC 07/15/18 19:30 8 MG Pantoprazole 80 mg ONCE ONCE IV 07/15/18 19:00 07/15/18 19:02 DC 07/15/18 19:30 80 MG Sodium Chloride 10 ml NEEDED PRN IV 07/15/18 20:15 07/15/18 20:25 10 ML Sodium Chloride 250 ml ONCE ONCE IV 07/15/18 20:15 07/15/18 20:16 DC 07/15/18 20:24 80 ML Sodium Chloride 1,000 ml @ 0 mls/hr Q0M ONCE IV 07/15/18 22:47 07/15/18 22:48 UNV 07/15/18 23:07 1,000 MLS/HR Vital Signs/I&O 07/15/18 07/15/18 18:46 19:57 Temp 97.7 Pulse 126 Resp 24 B/P (MAP) 161/119 (133) Pulse Ox 94 94 O2 Delivery Room Air Nasal Cannula O2 Flow Rate 2.00 Capillary Refill : Less Than 3 Seconds Blood Pressure Mean: 133 ECG Initial ECG Impression Date: Jul 15, 2018 Initial ECG Impression Time: 18:59 Initial ECG Rate: 125 Initial ECG Rhythm: S.Tach (RBBB, LPFB) Initial ECG Comparisson: Unchanged (EXCEPT FOR RATE) Diagnostic Imaging Comments CXR--ATELECTASIS AND/OR INFILTRATE BILATERAL BASES, PER RADIOLOGIST REPORT @ 1950 Reviewed: Reviewed by Me Departure Impression Primary Impression: Small bowel obstruction Additional Impressions: S/P robot-assisted surgical procedure History of robot-assisted laparoscopic radical prostatectomy Sepsis Departure-Patient Inst. Referrals: JJ HOLLOWAY MD (PCP) Primary Care Physician JUAN CARLOS MENG (Family) Primary Care Physician LARRY POOL DO Jul 15, 2018 20:23
[2018-07-15 20:39] LABS: BACTERIA,URINE NEGATIVE /HPF; RBC,URINE TNTC /HPF
--- NOTE | 2018-07-15 20:58 | Diagnostic Imaging Report ---
INDICATION: 2 days postop prostate surgery. Hemoptysis with sweats and fever. CT angiography of the chest with MIP reconstructed imaging. Bolus IV contrast. CT contrasted images of the abdomen and pelvis. Comparison with 02/17/2018. FINDINGS: CT angiography of the chest: There is good opacification of the aorta and pulmonary arteries. No evidence of aortic aneurysm or dissection. The pulmonary arteries are well opacified. There are no filling defects to indicate pulmonary emboli. There is bilateral basilar atelectasis. Could not exclude some consolidated infiltrate as there are air bronchograms present as well. There are small bibasilar pleural effusions. No bony lesions. IMPRESSION: 1. No evidence of pulmonary emboli or aortic dissection. 2. Bibasilar atelectasis and/or infiltrate with small pleural effusion. CT abdomen and pelvis: Good opacification of the aorta and abdominal vessels which show minimal atherosclerotic disease. There is normal enhancement of the abdominal organs. There is mild hepatomegaly with hepatic steatosis. Gallbladder and bile ducts are normal. Pancreas and spleen are normal. The adrenal glands are normal. The kidneys are normal. The stomach is distended and fluid-filled. There are several dilated loops of small bowel in the mid and lower abdomen. These show maximal diameter of approximately 4 cm. No definite pneumatosis is seen. There is a small amount of scattered air within the mesenteric fat along the mesenteric root. The appendix is not dilated. The terminal ileum is not distended. There is stool and gas throughout the colon. There is no evidence of colonic obstruction. The colon is not distended. No evidence of diverticulitis. Singh catheter is present with decompression of bladder. Prostate is enlarged. There is mild edema of the periprostatic fat though no evidence of abscess. No evidence of hematoma. No free air. No adenopathy. No bony lesions are demonstrated. IMPRESSION: 1. Findings are consistent with relatively high-grade distal small bowel obstruction. There is a small amount of free air in the mesenteric fat in the mid abdomen along the route. This may be secondary to recent surgery. There is no definite evidence of pneumatosis of the bowel wall and no evidence of free intraperitoneal air. 2. There is some edema surrounding the pancreatic bed within the adjacent fat which may be postoperative as well. No evidence of a drainable abscess demonstrated. Dictated by: Dictated on workstation # [id number]
[2018-07-15 21:01] LABS: BAND NEUTROPHILS 1 %; LYMPHOCYTES % (MANUAL) 16 %; MONOCYTES % (MANUAL) 9 %; NEUTROPHILS % (MANUAL) 74 %; RBC MORPH NORMAL
[2018-07-15] MEDS ORDERED: fentaNYL INJECTION 100 MCG/2 ML AMP IVP STA ×2 (21:21→23:21)
[2018-07-15] MEDS ORDERED: NS IV 1000 ML 1,000 ML IV ONE (22:47)
[2018-07-15] MEDS ORDERED: cefTRIAXone FOR IV USE 1,000 MG in NS (IVPB) 50 ML IV ONE (23:00)
[2018-07-16] MEDS ORDERED: cefTRIAXone 1 GM/10 ML for IV (ROCEPHIN) ONE (03:08)
[2018-07-16] MEDS ORDERED: NS (IVPB) 50 ML ONE (03:09)
[2018-07-16] MEDS ORDERED: fentaNYL INJECTION 100 MCG/2 ML AMP ONE (03:09)
[2018-07-16 03:40] VITALS: BP 152/99
--- NOTE | 2018-07-16 06:26 | Diagnostic Imaging Report ---
EXAMINATION: Portable erect AP chest at 1128 PM INDICATION: NG tube placement In the interval since the prior exam performed earlier today at 7:23 PM an NG line has been inserted. The tip of the line is directed laterally and overlies the gastric body/fundus. The overall appearance of the chest itself is otherwise stable. IMPRESSION: The tip of the newly inserted NG line overlies the lateral aspect of the gastric body/fundus and seems to be in good position. Dictated by: Dictated on workstation # [id number]
== END 2018-07-16 03:40 | disposition short-term general hospital (02) ==
LOC: EDUNIT# 18:28 → ER 18:28
DX: K56.609 Unspecified intestinal obstruction, unspecified as to partial versus complete obstruction (principal); A41.9 Sepsis, unspecified organism; Z90.79 Acquired absence of other genital organ(s); Z98.890 Other specified postprocedural states; Z79.84 Long term (current) use of oral hypoglycemic drugs; Z87.891 Personal history of nicotine dependence; Z85.46 Personal history of malignant neoplasm of prostate; Z82.49 Family history of ischemic heart disease and other diseases of the circulatory system
CPT/HCPCS: 36415; 71045; 71275; 74177; 80053; 81000; 82150; 83605; 83690; 83735; 83880; 84484; 85007; 85027; 85610; 85730; 87040; 93041